=== PATIENT | female | born 1970 | race African-American/Black ===

== ENCOUNTER 2023-12-05 10:21 | Emergency (ER) | payer OTHER ==
[~2023-12-05] VITALS: Ht 162.6 cm; Wt 90.0 kg
[2023-12-05 10:31] VITALS: BP 123/69; PULSE 116; RESP 16; TEMP 101.1; O2SAT 95
[2023-12-05 11:13] LABS: HEMATOCRIT. 37.2 % (36.0-48.0); HEMOGLOBIN. 11.9 g/dL (12.0-16.0); MEAN CORPUSCULAR HEMOGLOBIN 25.5 pg (28.0-32.0); MEAN CORPUSCULAR VOLUME 79.7 fL (81.0-99.0); MEAN PLATELET VOLUME 8.9 fl (7.4-10.4); PLATELET 241 x1000/uL (130-400); RED BLOOD CELL COUNT 4.67 mill/uL (4.2-5.4); RED CELL DISTRIBUTION WIDTH 14.2 % (11.6-14.6); WHITE BLOOD COUNT 10.7 x1000/uL (4.5-11.0)
[2023-12-05 11:24] LABS: DIFFERENTIAL COMMENT 1
[2023-12-05 11:29] LABS: CHLORIDE 107 mEq/L (98-107); POTASSIUM 3.6 mEq/L (3.5-5.1); SODIUM 141 mEq/L (136-145)
[2023-12-05 11:30] LABS: CARBON DIOXIDE 28 mEq/L (21-32)
[2023-12-05 11:31] LABS: CALCIUM 9.8 mg/dL (8.7-10.4)
[2023-12-05 11:35] LABS: GLUCOSE 98 mg/dL (70-105); UREA NITROGEN BLOOD 12 mg/dL (9-23)
[2023-12-05 18:22] LABS: PLATELET ESTIMATE NORMAL
[2023-12-05 18:23] LABS: MICROCYTOSIS 1+
== END 2023-12-05 18:47 | disposition left against medical advice (07) ==
LOC: ER 10:43
DX: J11.1 Influenza due to unidentified influenza virus with other respiratory manifestations (principal); Z53.21 Procedure and treatment not carried out due to patient leaving prior to being seen by health care provider
CPT/HCPCS: 36415; 80048; 85025; 99283